=== PATIENT | female | born 1985 | race Caucasian/White ===

== ENCOUNTER 2018-08-15 03:45 | Emergency (ER) | payer OTHER ==
[~2018-08-15] VITALS: Ht 157.4 cm; Wt 117.9 kg
== END 2018-08-15 04:41 | disposition home or self-care (01) ==
LOC: ED 03:45
DX: M62.830 Muscle spasm of back (principal); M54.6 Pain in thoracic spine; M54.5 Low back pain; Z88.1 Allergy status to other antibiotic agents

== ENCOUNTER 2018-08-17 13:24 | Emergency (ER) | payer OTHER ==
[~2018-08-17] VITALS: Ht 157.4 cm; Wt 117.9 kg
[2018-08-17] MEDS ORDERED: NAPROSYN500 MG PO (15:24)
[2018-08-17] MEDS ORDERED: PREDNISONE50 MG PO (15:24)
[2018-08-17] MEDS ORDERED: CYCLOBENZAPRINE10 MG PO (15:24)
== END 2018-08-17 15:35 | disposition home or self-care (01) ==
LOC: ED 13:24
DX: S39.012A Strain of muscle, fascia and tendon of lower back, initial encounter (principal); M54.6 Pain in thoracic spine; Z88.1 Allergy status to other antibiotic agents; X50.1XXA Overexertion from prolonged static or awkward postures, initial encounter; Y93.89 Activity, other specified; Y92.89 Other specified places as the place of occurrence of the external cause; Y99.8 Other external cause status

== ENCOUNTER 2019-10-19 08:23 | Emergency (ER) | payer OTHER ==
[~2019-10-19] VITALS: Ht 157.4 cm; Wt 127.0 kg
[~2019-10-19 08:23] MED LIST: CYCLOBENZAPRINE10 MG PO; NAPROSYN500 MG PO; PREDNISONE50 MG PO
[2019-10-19 09:04] LABS: BILIRUBIN NEGATIVE (NEGATIVE); BLOOD NEGATIVE (NEGATIVE); CLARITY SL CLOUDY (CLEAR); COLOR YELLOW (YELLOW); GLUCOSE TRACE (NEGATIVE); KETONE NEGATIVE (NEGATIVE); LEUKO ESTERASE NEGATIVE (NEGATIVE); NITRITE NEGATIVE (NEGATIVE); PH 5.5 (5.0-9.0); SPECIFIC GRAVITY >= 1.030 (1.005-1.030); UROBILINOGEN 0.2 E.U./dl (0.2-1.0)
[2019-10-19 09:16] LABS: BASO % 0.4 % (0.0-1.0); EOS # 0.1 10*3/uL (0.0-0.4); HEMATOCRIT 41.8 % (37.0-47.0); HEMOGLOBIN 13.5 g/dl (12.0-16.0); LYMPH # 1.3 10*3/uL (1.3-4.4); LYMPH % 15.1 % (27.0-41.0); MEAN CELL VOLUME 87.8 fl (81.0-99.0); MEAN CORPUSCULAR HGB 28.4 pg (27.0-31.0); MEAN CORPUSCULAR HGB CONC 32.3 g/dl (33.0-37.0); MEAN PLATELET VOLUME 9.4 fl (9.6-12.3); MONO # 0.6 10*3/uL (0.1-1.0); MONO % 6.9 % (3.0-9.0); NEUT # 6.3 10*3/uL (2.3-7.9); NEUT % 76.1 % (47.0-73.0); PLATELET COUNT AUTOMATED 308 10*3/uL (130-400); RED BLOOD COUNT 4.76 10*6/uL (4.10-5.10); RED CELL DISTRI WIDTH 13.9 % (0-14.5); WHITE BLOOD COUNT 8.3 10*3/uL (4.8-10.8)
[2019-10-19 09:21] LABS: BACTERIA 2+; CALCIUM OXALATE CRYSTALS 2+; EPITHELIAL CELLS 15-20; WBC 0-2 wbc/hpf (0-5)
[2019-10-19 09:30] LABS: ALBUMIN 3.2 gm/dl (3.1-4.5); ALKALINE PHOSPHATASE 85 U/L (45-117); BUN 11 mg/dl (7-24); CHLORIDE 106 mmol/L (98-107); CREATININE 0.85 mg/dL (0.55-1.02); LIPASE 119 U/L (73-393); POTASSIUM 4.1 mmol/L (3.5-5.1); SGOT/AST 20 IU/L (3-35); SGPT/ALT 28 U/L (12-78); SODIUM 138 mmol/L (136-145); TOTAL PROTEIN 7.6 gm/dL (6.4-8.2)
[2019-10-19] MEDS ORDERED: CYCLOBENZAPRINE10 MG PO (10:07)
[2019-10-19] MEDS ORDERED: NAPROSYN500 MG PO (10:07)
[2019-10-19] MEDS ORDERED: TYLENOL325 M1 PO (10:07)
== END 2019-10-19 10:09 | disposition home or self-care (01) ==
LOC: ED 08:23
PROVIDERS: Emergency Medicine
DX: K80.80 Other cholelithiasis without obstruction (principal); E11.65 Type 2 diabetes mellitus with hyperglycemia; R07.89 Other chest pain; M54.5 Low back pain; E66.01 Morbid (severe) obesity due to excess calories; Z88.1 Allergy status to other antibiotic agents; Z79.899 Other long term (current) drug therapy

== ENCOUNTER 2019-11-30 02:26 | Emergency (ER) | payer BC ==
[~2019-11-30] VITALS: Wt 129.3 kg
[~2019-11-30 02:26] MED LIST changes: +TYLENOL325 M1 PO
== END 2019-11-30 04:40 | disposition home or self-care (01) ==
LOC: ED 02:26
DX: R51 Headache (principal); E11.9 Type 2 diabetes mellitus without complications; F17.200 Nicotine dependence, unspecified, uncomplicated; Z88.8 Allergy status to other drugs, medicaments and biological substances; Z79.899 Other long term (current) drug therapy

== ENCOUNTER → 2019-12-07 | Outpatient (CLI) | payer BC | END | disposition home or self-care (01) | LOC: CT 07:56 | DX: G43.009 Migraine without aura, not intractable, without status migrainosus (principal) ==

== ENCOUNTER → 2020-05-31 | Outpatient (CLI) | payer BC | END | disposition home or self-care (01) | LOC: LAB 07:47 → MRI 09:00 | PROVIDERS: ATTEND Psychiatry & Neurology Neurology | DX: G44.229 Chronic tension-type headache, not intractable (principal); D89.89 Other specified disorders involving the immune mechanism, not elsewhere classified; M51.16 Intervertebral disc disorders with radiculopathy, lumbar region ==

== ENCOUNTER 2024-02-27 18:05 | Emergency (ER) | payer OTHER ==
[~2024-02-27] VITALS: Ht 157.5 cm; Wt 122.5 kg
[2024-02-27] MEDS ORDERED: IOHEXOL 300 MG/ML 100 ML VIAL IV ONE (18:40)
[2024-02-27] MEDS ORDERED: HYDROmorphONE Hydrochloride 0.5 MG/0.5 ML SYRINGE IV ONE (18:40)
[2024-02-27] MEDS ORDERED: SODIUM CHLORIDE 0.9% 1,000 ML IV ONE (18:40)
[2024-02-27] MEDS ORDERED: Ondansetron Hydrochloride 4 MG/2 ML VIAL IV ONE (18:40)
[2024-02-27 18:43] LABS: BASO % 0.4 % (0.0-1.0); EOS % 9.8 % (1.0-4.0); HEMATOCRIT 43.9 % (37.0-47.0); LYMPH # 1.2 10*3/uL (1.3-4.4); LYMPH % 11.9 % (27.0-41.0); MEAN CELL VOLUME 85.9 fl (81.0-99.0); MEAN CORPUSCULAR HGB 27.4 pg (27.0-31.0); MEAN CORPUSCULAR HGB CONC 31.9 g/dl (33.0-37.0); MONO # 0.5 10*3/uL (0.1-1.0); NEUT # 7.2 10*3/uL (2.3-7.9); NEUT % 72.4 % (47.0-73.0); PLATELET COUNT AUTOMATED 254 10*3/uL (130-400); RED BLOOD COUNT 5.11 10*6/uL (4.10-5.10); RED CELL DISTRI WIDTH 13.9 % (0-14.5)
[2024-02-27] MEDS ORDERED: IOHEXOL 300 MG/ML 100 ML VIAL ONE (18:56)
[2024-02-27 19:00] LABS: ALKALINE PHOSPHATASE 104 U/L (46-116); BUN 6 mg/dl (9-23); CHLORIDE 102 mmol/L (98-107); LIPASE 70 U/L (12-53); POTASSIUM 3.8 mmol/L (3.4-5.1); SGPT/ALT 23 U/L (5-49); TOTAL PROTEIN 7.4 gm/dL (6.0-8.0)
[2024-02-27] MEDS ORDERED: ONDANSETRON4 MG SL (21:35)
== END 2024-02-27 21:58 | disposition home or self-care (01) ==
LOC: ED 18:05
PROVIDERS: Nurse Practitioner Family
DX: K80.20 Calculus of gallbladder without cholecystitis without obstruction (principal); R11.2 Nausea with vomiting, unspecified; R19.7 Diarrhea, unspecified; E11.65 Type 2 diabetes mellitus with hyperglycemia; Z88.8 Allergy status to other drugs, medicaments and biological substances

== ENCOUNTER 2024-03-03 21:57 | Emergency (ER) | payer OTHER ==
[~2024-03-03] VITALS: Wt 127.0 kg
[~2024-03-03 21:57] MED LIST changes: +ONDANSETRON4 MG SL
[2024-03-03] MEDS ORDERED: HYDROmorphONE Hydrochloride 0.5 MG/0.5 ML SYRINGE IV ONE (22:10)
[2024-03-03] MEDS ORDERED: Ondansetron Hydrochloride 4 MG/2 ML VIAL IV ONE (22:10)
[2024-03-03] MEDS ORDERED: SODIUM CHLORIDE 0.9% 1,000 ML IV ONE (22:10)
[2024-03-03 22:21] LABS: BASO % 0.4 % (0.0-1.0); EOS # 0.8 10*3/uL (0.0-0.4); EOS % 7.4 % (1.0-4.0); HEMATOCRIT 44.6 % (37.0-47.0); LYMPH # 2.4 10*3/uL (1.3-4.4); LYMPH % 22.3 % (27.0-41.0); MEAN CELL VOLUME 84.5 fl (81.0-99.0); MEAN CORPUSCULAR HGB 27.7 pg (27.0-31.0); MEAN CORPUSCULAR HGB CONC 32.7 g/dl (33.0-37.0); MEAN PLATELET VOLUME 8.8 fl (9.6-12.3); MONO % 9.3 % (3.0-9.0); NEUT # 6.5 10*3/uL (2.3-7.9); PLATELET COUNT AUTOMATED 338 10*3/uL (130-400); RED BLOOD COUNT 5.28 10*6/uL (4.10-5.10); RED CELL DISTRI WIDTH 14.4 % (0-14.5); WHITE BLOOD COUNT 10.8 10*3/uL (4.8-10.8)
[2024-03-03] MEDS ORDERED: ATORVASTATIN CA20 M1 PO (22:33)
[2024-03-03] MEDS ORDERED: METFORMIN HYDR500 MG PO (22:33)
[2024-03-03] MEDS ORDERED: NIFEDIPINE30 MG PO (22:34)
[2024-03-03] MEDS ORDERED: ESCITALOPRAM OX10 MG PO (22:34)
[2024-03-03] MEDS ORDERED: PROPRANOLOL HCL20 MG PO (22:34)
[2024-03-03 22:49] LABS: ALKALINE PHOSPHATASE 90 U/L (46-116); BUN 7 mg/dl (9-23); CHLORIDE 102 mmol/L (98-107); LIPASE 48 U/L (12-53); POTASSIUM 3.5 mmol/L (3.4-5.1); SGPT/ALT 20 U/L (5-49); TOTAL PROTEIN 7.1 gm/dL (6.0-8.0)
[2024-03-04] MEDS ORDERED: HYDROmorphONE Hydrochloride 0.5 MG/0.5 ML SYRINGE IV ONE (01:05)
== END 2024-03-04 01:15 | disposition home or self-care (01) ==
LOC: ED 21:57
PROVIDERS: Internal Medicine
DX: K80.20 Calculus of gallbladder without cholecystitis without obstruction (principal); K82.8 Other specified diseases of gallbladder; E11.65 Type 2 diabetes mellitus with hyperglycemia; E83.42 Hypomagnesemia; Z88.8 Allergy status to other drugs, medicaments and biological substances

== ENCOUNTER 2024-12-17 13:31 | Inpatient (IN) | payer OTHER ==
[~2024-12-17] VITALS: Ht 157.5 cm; Wt 120.9 kg
[~2024-12-17 13:31] MED LIST changes: +ATORVASTATIN CA20 M1 PO; +ESCITALOPRAM OX10 MG PO; +METFORMIN HYDR500 MG PO; +NIFEDIPINE30 MG PO; +PROPRANOLOL HCL20 MG PO
[2024-12-17 13:37] VITALS: BP 137/69
[2024-12-17] MEDS ORDERED: SODIUM CHLORIDE 0.9% 1,000 ML IV ONE (13:50)
[2024-12-17] MEDS ORDERED: FAMOTIDINE 50 ML IV ONE (13:50)
[2024-12-17] MEDS ORDERED: LORazepam 1 MG TAB PO ONE (13:55)
[2024-12-17 14:01] LABS: BASO # 0.1 10*3/uL (0.0-0.1); BASO % 0.7 % (0.0-1.0); EOS # 0.2 10*3/uL (0.0-0.4); EOS % 2.2 % (1.0-4.0); HEMATOCRIT 43.5 % (37.0-47.0); MEAN CELL VOLUME 85.6 fl (81.0-99.0); MEAN CORPUSCULAR HGB 27.2 pg (27.0-31.0); MEAN CORPUSCULAR HGB CONC 31.7 g/dl (33.0-37.0); MEAN PLATELET VOLUME 8.8 fl (9.6-12.3); MONO # 0.7 10*3/uL (0.1-1.0); MONO % 6.8 % (3.0-9.0); NEUT # 7.3 10*3/uL (2.3-7.9); NEUT % 70.9 % (47.0-73.0); PLATELET COUNT AUTOMATED 377 10*3/uL (130-400); RED BLOOD COUNT 5.08 10*6/uL (4.10-5.10); RED CELL DISTRI WIDTH 14.5 % (0-14.5); WHITE BLOOD COUNT 10.3 10*3/uL (4.8-10.8)
[2024-12-17 14:15] LABS: BUN 9 mg/dl (9-23); CHLORIDE 107 mmol/L (98-107); POTASSIUM 4.3 mmol/L (3.4-5.1)
[2024-12-17] MEDS ORDERED: ASPIRIN, CHEWABLE 81 MG TAB PO ONE (14:35)
[2024-12-17] MEDS ORDERED: HEPARIN SODIUM 250 ML IV SCH (14:35)
[2024-12-17] MEDS ORDERED: Q-SORB CO Q-101 EACH PO (14:52)
[2024-12-17 15:16] VITALS: BP 148/69
[2024-12-17] MEDS ORDERED: Ondansetron Hydrochloride 4 MG/2 ML VIAL IV PRN (15:35)
[2024-12-17] MEDS ORDERED: ACETAMINOPHEN 325 MG TAB PO PRN (15:35)
[2024-12-17] MEDS ORDERED: Magnesium Hydroxide 30 ML UDC PO PRN (15:35)
[2024-12-17] MEDS ORDERED: ACETAMINOPHEN 650 MG SUPP R PRN (15:35)
[2024-12-17] MEDS ORDERED: BISACODYL 5 MG TAB PO PRN (15:35)
[2024-12-17] MEDS ORDERED: BISACODYL 10 MG SUPP R PRN (15:35)
[2024-12-17] MEDS ORDERED: Technetium Tc 99M Tetrofosmi 0.23 MG KIT IJ SCH (15:50)
[2024-12-17] MEDS ORDERED: DEXTROSE 10 % IN WATER 250 ML IV PRN (16:25)
[2024-12-17] MEDS ORDERED: INSULIN LISPRO 1 UNIT/0.01 ML SQ SCH (16:30)
[2024-12-17 17:22] VITALS: BP 113/47
[2024-12-17] MEDS ORDERED: LEXAPRO20 MG PO (17:30)
[2024-12-17 20:00] VITALS: BP 142/63
[2024-12-18] MEDS ORDERED: Regadenoson 0.4 MG/5 ML SYR IV ONE (06:18)
[2024-12-18 06:24] LABS: BASO # 0.1 10*3/uL (0.0-0.1); BASO % 0.6 % (0.0-1.0); EOS # 0.2 10*3/uL (0.0-0.4); EOS % 1.5 % (1.0-4.0); HEMATOCRIT 45.9 % (37.0-47.0); MEAN CELL VOLUME 88.3 fl (81.0-99.0); MEAN CORPUSCULAR HGB 27.1 pg (27.0-31.0); MEAN CORPUSCULAR HGB CONC 30.7 g/dl (33.0-37.0); MEAN PLATELET VOLUME 9.4 fl (9.6-12.3); MONO # 0.6 10*3/uL (0.1-1.0); MONO % 4.9 % (3.0-9.0); NEUT # 7.1 10*3/uL (2.3-7.9); NEUT % 63.3 % (47.0-73.0); PLATELET COUNT AUTOMATED 327 10*3/uL (130-400); RED CELL DISTRI WIDTH 14.9 % (0-14.5); WHITE BLOOD COUNT 11.2 10*3/uL (4.8-10.8)
[2024-12-18 06:28] LABS: ACT PARTIAL THROMBO TIME 31.9 SECONDS (20.0-32.1)
[2024-12-18 07:16] LABS: ALKALINE PHOSPHATASE 83 U/L (46-116); BUN 8 mg/dl (9-23); CHLORIDE 106 mmol/L (98-107); CHOLESTEROL 205 mg/dL (<200); FREE T4 1.11 ng/dl (0.89-1.76); SGPT/ALT 18 U/L (5-49); TOTAL PROTEIN 6.8 gm/dL (6.0-8.0); TRIGLYCERIDES 621 mg/dl (<150)
[2024-12-18 07:39] LABS: VITAMIN D, 25-HYDROXY 40.2 ng/mL (30-100)
[2024-12-18] MEDS ORDERED: Ondansetron Hydrochloride 4 MG/2 ML VIAL ONE (09:00)
[2024-12-18] MEDS ORDERED: ATORVASTATIN CALCIUM 40 MG TABLET PO SCH (10:00)
[2024-12-18] MEDS ORDERED: ASPIRIN, CHEWABLE 81 MG TAB PO SCH (10:00)
[2024-12-18] MEDS ORDERED: ESCITALOPRAM OXALATE 10 MG TAB PO SCH (10:00)
[2024-12-18 10:18] VITALS: BP 110/45
[2024-12-18] MEDS ORDERED: ATORVASTATIN CA40 M1 PO (13:43)
[2024-12-18] MEDS ORDERED: ASPIRIN CHILDRE81 MG PO (13:43)
[2024-12-18] MEDS ORDERED: ESCITALOPRAM OXALATE 20 MG TAB PO SCH (17:00)
== END 2024-12-18 14:44 | disposition home or self-care (01) | DRG 203 ==
LOC: ED 13:31 → EDHOLD 14:44 → 4E 14:44
PROVIDERS: Emergency Medicine; ADMIT Internal Medicine; ATTEND Internal Medicine
PROC: 4A02XM4 Measurement of Cardiac Total Activity, External Approach (ICD-10-PCS; principal; 2024-12-18)
PROC: 3E033HZ Introduction of Radioactive Substance into Peripheral Vein, Percutaneous Approach (ICD-10-PCS; 2024-12-18)
DX: M94.0 Chondrocostal junction syndrome [Tietze] (principal); E44.0 Moderate protein-calorie malnutrition; E87.1 Hypo-osmolality and hyponatremia; F41.9 Anxiety disorder, unspecified; I10 Essential (primary) hypertension; E78.5 Hyperlipidemia, unspecified; G43.909 Migraine, unspecified, not intractable, without status migrainosus; F17.210 Nicotine dependence, cigarettes, uncomplicated; E11.65 Type 2 diabetes mellitus with hyperglycemia; Z88.8 Allergy status to other drugs, medicaments and biological substances; Z79.899 Other long term (current) drug therapy; Z79.01 Long term (current) use of anticoagulants; Z79.2 Long term (current) use of antibiotics; Z98.891 History of uterine scar from previous surgery; Z90.49 Acquired absence of other specified parts of digestive tract; Z82.49 Family history of ischemic heart disease and other diseases of the circulatory system; Z83.3 Family history of diabetes mellitus; Z68.42 Body mass index [BMI] 45.0-49.9, adult